=== PATIENT | male | born 1980 | race Caucasian/White ===

== ENCOUNTER 2016-04-02 23:42 | Emergency (ER) | payer BC, OTHER ==
[2016-04-02 23:47] VITALS: TEMP 98.2; BMI 30.7
[2016-04-03 00:58] LABS: MCH 29.8 pg (25.7-33.7); MCHC 34.1 g/dl (32.0-35.9); MEAN CELL VOLUME 87.6 fl (80-96); MEAN PLT VOLUME 11.4 fl (7.5-11.1); PLATELET COUNT 104 K/MM3 (134-434); RDW 13.4 % (11.9-15.9); WHITE BLOOD COUNT 7.8 K/mm3 (4.0-10.0)
--- NOTE | 2016-04-03 01:09 | PDOC ---
History of Present Illness - General Chief Complaint: Headache Stated Complaint: HEADACHE Time Seen by Provider: 04/02/16 23:58 History Source: Patient Exam Limitations: No Limitations - History of Present Illness Initial Comments: 04/03/16 11:53 36yo Male patient presents to ED h/a x 2 days and elevated B/p. Patient reports no PmHx, medications use, or allergies. He also verbalized not having a PCP. Patient states 1 month ago his work conditions have change, he states he was working evening shift and was moved to mornings, and that he is also currently studying for an important test. He denies change in vision, fever, CP, Abd pain , dizziness, n/v/d, rash, neck pain, dysuria, hematuria, frequent urination, back pain or any other complaints at this time. Patient also report trouble sleeping most recently. He complaints of constant dreaming and not fully going into deep sleep. Timing/Duration: reports: other (Today) Severity: Yes: severe Associated Symptoms: denies: denies symptoms, confusion, fatigue, fever/chills, insomnia, loss of consciousness, muscle spasms, nausea/vomiting, numbness in legs/feet, paresthesia, ringing in ears, seizures, sleepy, slurred speech, tingling in legs/feet, trouble walking, vision changes, weakness, other Past History - Travel Traveled outside of the country in the last 30 days: No Close contact w/someone who was outside of country & ill: No - Past Medical History Allergies/Adverse Reactions: Allergies Allergy/AdvReac Type Severity Reaction Status Date / Time No Known Allergies Allergy Verified 04/02/16 23:44 Home Medications: Ambulatory Orders Clonazepam [KlonoPIN] 0.5 mg PO TID PRN #15 tablet MDD 3 DAY 04/03/16 - Immunization History Immunization Up to Date: Yes - Psycho/Social/Smoking Cessation Hx Anxiety: No Suicidal Ideation: No Smoking History: Never smoked Number of Cigarettes Smoked Daily: 0 Information on smoking cessation initiated: No Hx Alcohol Use: No Drug/Substance Use Hx: No Substance Use Type: None Neuro Specific PMHX - Complaint Specific PMHX Glaucoma: No Herniated Disk: No Laminectomy: No Migraine: No Multiple Sclerosis: No Neuropathy: No TIA: No Review of Systems - Review of Systems Able to Perform ROS?: Yes Is the patient limited Urdu proficient: No Constitutional: No: Chills, Fever HEENTM: No: Blurred Vision, Double Vision Respiratory: No: Cough, Shortness of Breath, Stridor, Wheezing Cardiac (ROS): No: Chest Pain, Edema, Lightheadedness, Palpitations, Syncope, Chest Tightness ABD/GI: No: Diarrhea, Nausea, Vomiting : No: Frequency, Flank Pain, Hematuria, Pain, Urgency Musculoskeletal: No: Back Pain Integumentary: No: Erythema, Rash Neurological: Yes: Headache. No: Numbness, Paresthesia, Seizure, Tingling, Tremors, Weakness, Ataxia, Dizziness Psychiatric: Yes: Anxiety, Depression, Stressors, Sleep Pattern Change All Other Systems: Reviewed and Negative *Physical Exam - Vital Signs Last Vital Signs Temp Pulse Resp BP Pulse Ox 98.2 F 73 14 140/79 97 04/02/16 23:45 04/02/16 23:45 04/02/16 23:45 04/02/16 23:45 04/02/16 23:45 - Physical Exam General Appearance: Yes: Nourished, Appropriately Dressed. No: Apparent Distress, Mild Distress, Moderate Distress, Severe Distress HEENT: positive: EOMI, CLAUDIA, Normal ENT Inspection, Normal Voice, Symmetrical, TMs Normal, Pharynx Normal. negative: Pharyngeal Erythema, Nasal Congestion, Rhinorrhea, TM Bulging, TM Dull, TM Erythema Neck: positive: Trachea midline, Normal Thyroid, Supple. negative: Rigid, Decreased range of motion, Stridor, Lymphadenopathy (R), Lymphadenopathy (L) Respiratory/Chest: positive: Lungs Clear, Normal Breath Sounds. negative: Respiratory Distress, Accessory Muscle Use, Labored Respiration, Rapid RR, Stridor, Wheezing Cardiovascular: positive: Regular Rhythm, Regular Rate. negative: Edema, JVD, Murmur Gastrointestinal/Abdominal: positive: Normal Bowel Sounds, Soft. negative: Distended, Guarding, Rebound, Tenderness Lymphatic: negative: Adenopathy Musculoskeletal: positive: Normal Inspection. negative: CVA Tenderness Extremity: positive: Normal Capillary Refill, Normal Inspection, Normal Range of Motion. negative: Pedal Edema, Swelling Integumentary: positive: Normal Color, Dry, Warm. 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, Fully Oriented, Alert, Normal Mood/ Affect, Normal Response, Motor Strength 5/5 ED Treatment Course - LABORATORY CBC & Chemistry Diagram: 04/03/16 00:30 04/03/16 00:30 - RADIOLOGY Radiology Studies Ordered: Category Date Time Status HEAD CT WITHOUT CONTRAST [CT] Stat CT Scan 04/03/16 00:23 Taken *DC/Admit/Observation/Transfer Diagnosis at time of Disposition: Anxiety Headache Qualifiers: Headache type: tension-type Headache chronicity pattern: acute headache Intractability: not intractable Qualified Code(s): G44.209 - Tension-type headache, unspecified, not intractable Insomnia Qualifiers: Insomnia type: adjustment Qualified Code(s): F51.02 - Adjustment insomnia - Discharge Dispostion Disposition: HOME Condition at time of disposition: Good Admit: No - Prescriptions Prescriptions: Clonazepam [KlonoPIN] 0.5 mg PO TID PRN #15 tablet MDD 3 DAY PRN Reason: ANXIETY/INSOMNIA - Referrals Referrals: Brandon Sarabia MD [Staff Physician] - - Patient Instructions Printed Discharge Instructions: DI for Anxiety -- Adult, Insomnia, DI for Headache Additional Instructions: FOLLOW UP WITH DR. SARABIA TO ESTABLISH CARE. CALL TO SCHEDULE APPOINTMENT. TAKE MEDICATIONS PRESCRIBED. RETURN IF SYMPTOMS WORSEN OR ANY CONCERNS FOR FURTHER EVALUATION. DO NOT DRIVE, DRINK ALCOHOL, OR OPERATE HEAVY MACHINERY WHILE TAKING KLONOPIN. Print Language: QATARI - Post Discharge Activity Work/School Note: Back to Work
[2016-04-03 01:12] LABS: URINE APPEARANCE CLEAR; URINE BILIRUBIN NEGATIVE (NEGATIVE); URINE BLOOD NEGATIVE (NEGATIVE); URINE COLOR LTYELLOW; URINE GLUCOSE (UA) NEGATIVE (NEGATIVE); URINE KETONE NEGATIVE (NEGATIVE); URINE LEUK ESTERASE NEGATIVE (NEGATIVE); URINE NITRITE NEGATIVE (NEGATIVE); URINE PROTEIN NEGATIVE (NEGATIVE); URINE UROBILINOGEN NEGATIVE E.U./dl (0.2-1.0)
[2016-04-03 01:19] LABS: ALBUMIN 4.2 g/dl (3.4-5.0); ALK PHOS 58 U/L (45-117); ANION GAP 9 (8-16); BILIRUBIN,TOTAL 0.5 mg/dL (0.2-1.0); CO2 29 mmol/L (21-32); CREATININE 1.1 mg/dL (0.7-1.3); GLUCOSE,RANDOM 110 mg/dL (74-106); SGOT/AST 24 U/L (15-37); SGPT/ALT 64 U/L (12-78); TOT PROT 7.7 g/dl (6.4-8.2)
[2016-04-03 02:28] VITALS: BP 130/96; PULSE 78
[2016-04-03] MEDS ORDERED: clonazePAM 0.5 MG TABLET PO ONE (02:45)
[2016-04-03] MEDS ORDERED: clonazePAM 0.5 MG TABLET ONE (02:54)
== END 2016-04-03 02:57 | disposition home or self-care (01) ==
LOC: JER 23:42
DX: G44.209 Tension-type headache, unspecified, not intractable (principal); F41.9 Anxiety disorder, unspecified
CPT/HCPCS: 36415; 70450-TC; 80053; 81003; 85027; 99281-25

== ENCOUNTER 2016-04-18 00:49 | Emergency (ER) | payer BC, OTHER ==
[2016-04-18 01:54] VITALS: BP 131/65; PULSE 65; TEMP 97.5; BMI 27.4
--- NOTE | 2016-04-18 02:45 | PDOC ---
History of Present Illness - General Chief Complaint: Blood Pressure Problem Stated Complaint: BLOOD PRESSURE PROBLEM Time Seen by Provider: 04/18/16 01:13 - History of Present Illness Initial Comments: 04/18/16 02:59 CHIEF COMPLAINT: blood pressure problem HISTORY OF PRESENT ILLNESS: 36 yo M with recently diagnosed HTN presents to ED with concerns regarding his blood pressure. Patient states he went to sleep around 9:30 tonight and woke up an hour later due to headache, and when he took his blood pressure it was 150/100. He took an extra dose of his Nebivolol and came to the ER. He denies any chest pain, sob, headache, dizziness, palpitations, blurry vision, fever, nausea, or vomiting. HE was recently prescribed Klonopin in this ED for anxiety. He also reports "sometimes my feet feel heavy or something, they look fine but they feel swollen." PAST MEDICAL HISTORY: Denies past medical history FAMILY HISTORY: Denies SOCIAL HISTORY: Denies tobacco, alcohol, illicit drug use. SURGICAL HISTORY: Denies ALLERGIES: No known drug allergies REVIEW OF SYSTEMS General/Constitutional: Denies fever or chills. Denies weakness, weight change. HEENT: Denies change in vision. Denies ear pain or discharge. Denies sore throat. Cardiovascular: "My blood pressure was high." Denies chest pain or shortness of breath. Respiratory: Denies cough, wheezing, or hemoptysis. Gastrointestinal: Denies nausea, vomiting, diarrhea or constipation. Denies rectal bleeding. Genitourinary: Denies dysuria, frequency, or change in urination. Musculoskeletal: Denies joint or muscle swelling or pain. Denies neck or back pain. Skin and breasts: Denies rash or easy bruising. Neurologic: Denies headache, vertigo, loss of consciousness, or loss of sensation. PHYSICAL EXAM General Appearance: Well-appearing, appropriately dressed. No apparent distress. HEENT: EOMI, PERRLA. No photophobia, scleral icterus. Respiratory/Chest: Lungs CTAB. Cardiovascular: RRR. S1, S2. Vascular Pulses: Dorsalis-Pedis (R): 2+, Dorsalis-Pedis (L): 2+ Gastrointestinal/Abdominal: Normal bowel sounds. Abdomen soft, non-distended. No tenderness or rebound tenderness. Musculoskeletal/Extremities: Normal inspection. FROM of all extremities, normal capillary refill. No tenderness to extremities, pedal edema, swelling, erythema or deformity. Integumentary: Appropriate color, dry, warm. No cyanosis, erythema, jaundice or rash Neurologic: dry folder cloth II-XII intact. Fully oriented, alert. Appropriate mood/affect. Motor strength 5/5. No appreciable EOM palsy, facial droop or sensory deficit. Past History - Past Medical History Allergies/Adverse Reactions: Allergies Allergy/AdvReac Type Severity Reaction Status Date / Time seafood Allergy Uncoded 04/18/16 01:05 Home Medications: Ambulatory Orders Clonazepam [KlonoPIN] 0.5 mg PO TID PRN #15 tablet MDD 3 DAY 04/03/16 - Immunization History Immunization Up to Date: Yes - Psycho/Social/Smoking Cessation Hx Anxiety: No Suicidal Ideation: No Smoking History: Never smoked Number of Cigarettes Smoked Daily: 0 Hx Alcohol Use: No Drug/Substance Use Hx: No Substance Use Type: None *Physical Exam - Vital Signs Last Vital Signs Temp Pulse Resp BP Pulse Ox 97.5 F L 65 16 131/65 100 04/18/16 01:05 04/18/16 01:05 04/18/16 01:05 04/18/16 01:05 04/18/16 01:05 Medical Decision Making - Medical Decision Making 04/18/16 03:08 36 yo M with recently diagnosed HTN presents to ED with concerns of high blood pressure. On arrival to ED patient's BP was 131/65. Patient is well appearing with no sob, chest pain, palpitations. Reassured patient that his blood pressure is fine at this moment and that he should follow up with his PMD for further evaluation. Advised patient to continue taking medications as prescribed and not to take extra doses without consulting his doctor. Advised patient of signs and symptoms for return to ER; patient verbalized understanding and agrees to plan. 04/18/16 03:08 *DC/Admit/Observation/Transfer Diagnosis at time of Disposition: Hypertension Qualifiers: Hypertension type: unspecified secondary hypertension Qualified Code(s): I15.9 - Secondary hypertension, unspecified - Discharge Dispostion Disposition: HOME Condition at time of disposition: Stable Admit: No - Referrals Referrals: Irena Gustafson MD [Primary Care Provider] - - Patient Instructions Printed Discharge Instructions: DI for High Blood Pressure Additional Instructions: Please take your medications as prescribed. Follow up with Dr. Gustafson this week for further evaluation of your blood pressure and the discomfort in your feet. If you experience any chest pain, shortness of breath, headache, dizziness, change in your vision, or any new or worsening symptoms, please return to the ER. - Post Discharge Activity Work/School Note: Back to Work
--- NOTE | 2016-04-18 03:21 | PDOC ---
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 Follow up with Dr. Gustafson this week for further evaluation of your blood pressure and the discomfort in your feet. If you experience any chest pain, shortness of breath, headache, dizziness, change in your vision, or any new or worsening symptoms, please return to the ER. - Post Discharge Activity Work/School Note: Back to Work
== END 2016-04-18 03:15 | disposition home or self-care (01) ==
LOC: JER 00:49
DX: I10 Essential (primary) hypertension (principal); F41.9 Anxiety disorder, unspecified
CPT/HCPCS: 99281-25

== ENCOUNTER 2017-12-08 12:44 | Emergency (ER) | payer BC, OTHER ==
[2017-12-08 12:51] VITALS: BMI 29.9
--- NOTE | 2017-12-08 13:18 | PDOC ---
History of Present Illness - General History Source: Patient Exam Limitations: No Limitations - History of Present Illness Initial Comments: 12/08/17 13:15 Pt is a 37yo m with PMH of HTN presenting to ED with complaints of elevated bp. Pt said he woke up and checked his blood pressure an hour or two ago and noticed that it was in the 130s/90s. He felt worried and wanted to get it checked out. He admits to SOB which he attributes to anxiety and OLIVO which he attributes to the 3 glasses of wine he had last night. He denies chest pain, changes in vision, neck pain, back pain, abdominal pain, n/v/d, urinary symptoms , pain/swelling in legs, weakness, syncope, lightheadness. He took his bp med today. His father has htn, he denies h/o [place] in the family PCP: Kody PMH: htn PSH: none Meds: losartan Allergies: nkda Social: occasional alcohol use <Marley Bernal - Last Filed: 12/08/17 15:19> <Ana Maldonado - Last Filed: 12/11/17 16:08> - General Chief Complaint: Blood Pressure Problem Stated Complaint: BLOOD PREASURE RAPPIDHEART BEET Time Seen by Provider: 12/08/17 13:04 Past History - Past Medical History COPD: No CHF: No HTN: Yes Psychiatric Problems: Yes (anxiety) - Immunization History Immunization Up to Date: Yes - Suicide/Smoking/Psychosocial Hx Smoking History: Never smoked Have you smoked in the past 12 months: No Number of Cigarettes Smoked Daily: 0 Information on smoking cessation initiated: No Hx Alcohol Use: Yes (social) Drug/Substance Use Hx: No Substance Use Type: None <Marley Bernal - Last Filed: 12/08/17 15:19> <Ana Maldonado - Last Filed: 12/11/17 16:08> - Past Medical History Allergies/Adverse Reactions: Allergies Allergy/AdvReac Type Severity Reaction Status Date / Time Fish Containing Products Allergy Verified 12/08/17 14:19 seafood Allergy Uncoded 12/08/17 12:51 Home Medications: Ambulatory Orders clonazePAM [KlonoPIN] 0.5 mg PO TID PRN #15 tablet MDD 3 DAY 04/03/16 Metoprolol Tartrate [Lopressor -] 25 mg PO DAILY 12/08/17 Review of Systems - Review of Systems Constitutional: No: Chills, Fever, Weakness HEENTM: No: Recent change in vision, Ear Pain, Tinnitus Respiratory: Yes: Shortness of Breath. No: Cough, Hemoptysis Cardiac (ROS): Yes: Palpitations. No: Chest Pain, Lightheadedness, Syncope ABD/GI: No: Constipated, Diarrhea, Nausea, Vomiting, Abdominal cramping : No: Burning, Dysuria, Frequency, Hematuria Musculoskeletal: No: Joint Pain, Muscle Pain, Muscle Weakness, Neck Pain Neurological: Yes: Headache. No: Numbness, Paresthesia, Tingling, Tremors, Weakness <Dolores,Marley - Last Filed: 12/08/17 15:19> *Physical Exam - Vital Signs Last Vital Signs Temp Pulse Resp BP Pulse Ox 98.7 F 101 H 18 161/101 H 99 12/08/17 12:47 12/08/17 12:47 12/08/17 12:47 12/08/17 12:47 12/08/17 12:47 - Physical Exam Comments: 12/08/17 13:34 Pt resting in bed comfortably, appeared anxious Vitals at bedside: BP 138/101, HR 87, O2 99% 12/08/17 13:35 General Appearance: Yes: Nourished, Appropriately Dressed. No: Apparent Distress HEENT: positive: EOMI, CLAUDIA, Pharynx Normal, Hearing Grossly Normal. negative: Pale Conjunctivae, Photophobia, Scleral Icterus (R), Scleral Icterus (L), Nasal Congestion, Rhinorrhea Neck: positive: Trachea midline, Supple. negative: Lymphadenopathy (R), Lymphadenopathy (L) Respiratory/Chest: positive: Lungs Clear, Normal Breath Sounds. negative: Crackles, Rales, Rhonchi, Stridor, Wheezing Cardiovascular: positive: Regular Rhythm, Regular Rate, S1, S2. negative: Edema , JVD, Murmur Vascular Pulses: Carotid (R): 2+, Carotid (L): 2+, Dorsalis-Pedis (R): 2+, Doralis-Pedis (L): 2+ Gastrointestinal/Abdominal: positive: Normal Bowel Sounds, Soft. negative: Guarding, Rebound, Tenderness Musculoskeletal: negative: CVA Tenderness (R), CVA Tenderness (L), Decreased Range of Motion Extremity: positive: Normal Capillary Refill. 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 negative: Numbness, Sensory Deficit <DoloresSaMarley - Last Filed: 12/08/17 15:19> - Vital Signs Last Vital Signs Temp Pulse Resp BP Pulse Ox 98.2 F 84 18 136/92 100 12/08/17 15:15 12/08/17 15:15 12/08/17 15:15 12/08/17 15:15 12/08/17 15:15 <Ana Maldonado - Last Filed: 12/11/17 16:08> ED Treatment Course - LABORATORY CBC & Chemistry Diagram: 12/08/17 13:27 12/08/17 13:27 <Marley Bernal - Last Filed: 12/08/17 15:19> - LABORATORY CBC & Chemistry Diagram: 12/08/17 13:27 12/08/17 13:27 - ADDITIONAL ORDERS Additional order review: 12/08/17 13:27 RBC 5.28 MCV 87.1 MCHC 33.4 RDW 13.4 MPV 10.8 Neutrophils % 76.0 Lymphocytes % 18.1 Monocytes % 5.4 Eosinophils % 0.2 Basophils % 0.3 - Medications Given in the ED: ED Medications Discontinued Medications Generic Name Dose Route Start Last Admin Trade Name Freq PRN Reason Stop Dose Admin Acetaminophen 1,000 mg 12/08/17 14:12 12/08/17 15:15 Tylenol - PO 12/08/17 14:13 1,000 mg ONCE ONE Administration <Ana Maldonado - Last Filed: 12/11/17 16:08> Medical Decision Making - Medical Decision Making 12/08/17 13:36 37yo m with PMH of htn presenting to ED with complaints of elevated BP. Also admits to SOB and OLIVO. Vitals: BP 138/101, HR 87 Saturating well on RA PE: benign DDx: Hypertension urgency v. emergency Will order ekg, cxr and basic labs to check for end organ damage. Will recheck vitals Will give pt Tylenol for headache 12/08/17 15:15 Labs wnl no elevated troponin, EKG showed prolonged AL however compared to ekg of September 25, 2017 CXR no acute pathology Pt reports reduced headache with tylenol Repeat vitals BP 138/92, HR 84, O2 98% <Marley Bernal - Last Filed: 12/08/17 15:19> *DC/Admit/Observation/Transfer - Discharge Dispostion Decision to Admit order: No <Marley Bernal - Last Filed: 12/08/17 15:19> <Ana Maldonado - Last Filed: 12/11/17 16:08> Diagnosis at time of Disposition: Hypertension Qualifiers: Hypertension type: unspecified Qualified Code(s): I10 - Essential (primary) hypertension - Discharge Dispostion Disposition: HOME Condition at time of disposition: Good - Referrals Referrals: Brandon Gates MD [Primary Care Provider] - - Patient Instructions Printed Discharge Instructions: DI for High Blood Pressure Additional Instructions: You were seen here today for evaluation of blood pressure. All of your results were normal. Please continue to see your primary care doctor for management of high blood pressure and remember to take your medication daily. Blood pressures can change, and it is ok if it gets high sometimes. You should come to the emergency room if: your systolic blood pressure (top number) is 180 or higher, the diastolic (bottom number) is 120 or higher, if you develop headaches, if you have changes in vision, you develop chest pain, you have difficulty breathing, you notice swelling in your legs, you have neck or back pain or if any new concerning symptom develops. Thank you - Post Discharge Activity
[2017-12-08 13:36] LABS: BASO % 0.3 % (0-2.0); EOS % 0.2 % (0-4.5); HEMOGLOBIN 15.3 GM/dL (11.7-16.9); LYMPH % 18.1 % (8-40); MCH 29.1 pg (25.7-33.7); MCHC 33.4 g/dl (32.0-35.9); MEAN CELL VOLUME 87.1 fl (80-96); MEAN PLT VOLUME 10.8 fl (7.5-11.1); MONO % 5.4 % (3.8-10.2); PLATELET COUNT 92 K/MM3 (134-434); RBC 5.28 M/mm3 (4.00-5.60); RDW 13.4 % (11.9-15.9); WHITE BLOOD COUNT 5.4 K/mm3 (4.0-10.0)
--- NOTE | 2017-12-08 13:45 | PDOC ---
Attending Attestation - Resident Resident Name: Marley Bernal - ED Attending Attestation I have performed the following: I have examined & evaluated the patient, The case was reviewed & discussed with the resident, I agree w/resident's findings & plan - HPI HPI: 12/08/17 16:03 Mr. Kwan is a 37 year old male, with a sig past medical history of HTN and anxiety, who presents to the ED complaining of elevated blood pressure, shortness of breath and headache since this morning. He notes that he did drink some wine (3 glasses) last night and checked his blood pressure this morning to be 130s/90s, which prompted him to come to the ED. The patient denies chest pain, and dizziness. Denies fever, chills, nausea, vomiting, diarrhea or constipation. Allergies: None Past surgical history: None reported Social History: Alcohol use. No tobacco or drug use reported - Physicial Exam PE: 12/08/17 15:43 NAD, alert, oriented to person time and place, well appearing, MMM, nl conjunctiva, anicteric; neck supple. lungs clear, RRR, abdomen soft nontender. JAIN x4, no focal neuro deficits. No peripheral edema. normal color for ethnicity , WWP. gait stable. - Medical Decision Making 12/08/17 13:44 37yo m with PMH of HTN presenting to ED with complaints of elevated BP, which caused him to be anxious. Also admits to SOB and OLIVO, since resolved. +ETOH use last night. Vitals: BP 138/101, HR 87 Saturating well on RA, on recheck which is reassuring. DDx: Hypertension urgency v. emergency, anxiety, pleurisy, pneumonia, edema. ACS , headache, end organ damage, electrolyte/metabolic derangements basic labs and lytes wnl. trop negative, reassuring, unlikely ACS. EKG normal sinus rhythm, prolonged AL interval, narrow QRS, ST and T wave segments and morphology normal. Nonspecific T wave abnormalities, isolated in III only. no acute changes from prior CXR_ clear, no edema Will recheck vitals, which have normalized, 130s/100, HR improved. currently no sx, no acute indication to treat. declines meds. compliance with antihypertensive regimen encouraged. avoid significant intake of gibraltarian espressos, high salt intake, ETOH intake. Pt to be discharged in stable condition. Patient made aware of impression and plan, return precautions discussed (including but not limited to worsening pain or symptoms), fevers, or signs of infection, chest pain, respiratory distress, inability to tolerate oral intake, dehydration, syncope, or neurologic changes) . Follow up with PMD and/or specialist as recommended, follow up information provided, take medications as instructed for duration of time. continue with supportive care, avoid triggers and precipitants. All questions answered to patient's satisfaction and expressed understanding and comfort with this. 12/08/17 16:03 12/08/17 16:04
[2017-12-08 14:12] LABS: ALBUMIN 4.2 g/dl (3.4-5.0); ALK PHOS 62 U/L (45-117); ANION GAP 9 MMOL/L (8-16); BILIRUBIN,TOTAL 0.4 mg/dL (0.2-1); BLOOD UREA NITROGEN 10 mg/dL (7-18); CALCIUM 8.9 mg/dL (8.5-10.1); CHLORIDE 105 mmol/L (98-107); CO2 26 mmol/L (21-32); CREATININE 0.9 mg/dL (0.55-1.3); GLUCOSE,RANDOM 120 mg/dL (74-106); MAGNESIUM 2.1 mg/dL (1.8-2.4); PHOSPHOROUS 3.2 mg/dL (2.5-4.9); POTASSIUM 3.8 mmol/L (3.5-5.1); SGOT/AST 21 U/L (15-37); SGPT/ALT 37 U/L (13-61); SODIUM 139 mmol/L (136-145); TOT PROT 7.7 g/dl (6.4-8.2)
[2017-12-08] MEDS ORDERED: ACETAMINOPHEN 500 MG TABLET (FP) PO ONE (14:12)
[2017-12-08 16:01] VITALS: BP 136/92; PULSE 84; TEMP 98.2
--- NOTE | 2017-12-09 10:42 | EKG ---
Test Reason : Blood Pressure : / mmHG Vent. Rate : 089 BPM Atrial Rate : 089 BPM P-R Int : 226 ms QRS Dur : 082 ms QT Int : 348 ms P-R-T Axes : 075 052 036 degrees QTc Int : 423 ms SINUS RHYTHM WITH 1ST DEGREE A-V BLOCK OTHERWISE NORMAL ECG WHEN COMPARED WITH ECG OF 30-JAN-2008 19:45, T WAVE VARIATION Confirmed by BHUMI GLEASON MD ([id number]) on 12/09/2017 10:41:59 AM Referred By: Confirmed By:BHUMI GLEASON MD
== END 2017-12-08 15:30 | disposition home or self-care (01) ==
LOC: JER 12:44
DX: I10 Essential (primary) hypertension (principal); F41.9 Anxiety disorder, unspecified
CPT/HCPCS: 36415; 71045-TC-FY; 80053; 83735; 84100; 84484; 85025; 93005; 93010; 99283-25